=== PATIENT | female | born 1930 | race Caucasian/White ===

== ENCOUNTER 2018-01-19 17:40 | Inpatient (IN) | payer MEDICARE ==
--- NOTE | 2018-01-19 19:28 | ER ---
Nurse's Notes [facility] Name: Dina Mills Age: 87 yrs Sex: Female : 1930 Arrival Date: 01/19/2018 Time: 17:42 Bed 5 Private MD: Diagnosis: Cellulitis of left upper limb-with lymphangitis Presentation: 01/19 17:49 Presenting complaint: Patient states: Worsening LEFT hand swelling and pain 9/10 after hb pulling weeds 5 days ago. Pt noticed two small blisters on left ring finger before the swelling started. Transition of care: patient was not received from another setting of care. Onset of symptoms is unknown. Care prior to arrival: Medication(s) given: Tylenol, at 1500 today. 17:49 Method Of Arrival: Ambulatory hb 17:49 Acuity: AUDI 3 hb Historical: - Allergies: 17:51 Iodinated Contrast- Oral and IV Dye; hb 17:51 Sulfa (Sulfonamide Antibiotics); hb - PSHx: 17:51 Hysterectomy; R hip; hb - Immunization history:: Adult Immunizations up to date. - Social history:: Smoking status: Patient/guardian denies using tobacco. Screenin:48 Abuse screen: Denies threats or abuse. Denies injuries from another. Nutritional ph screening: No deficits noted. Tuberculosis screening: No symptoms or risk factors identified. Fall Risk None identified. Assessment: 18:15 General: Appears in no apparent distress. comfortable, slender, well groomed, Behavior ph is calm, cooperative, appropriate for age, Denies fever. Pain: Complains of pain in left hand Pain radiates to left arm. Neuro: Level of Consciousness is awake, alert, obeys commands, Oriented to person, place, time, situation. Cardiovascular: Capillary refill < 3 seconds in bilateral fingers Patient's skin is warm and dry. Pulses are palpable in right radial artery and left radial artery. Respiratory: Airway is patent Respiratory effort is even, unlabored. GI: Patient currently denies epigastric pain, nausea, vomiting. Derm: Skin is fragile, is thin, Skin is pink, warm \T\ dry. redness and swelling noted to palm and dorsal aspect of L hand w/ streaking to antecubital area. Musculoskeletal: Circulation, motion, and sensation intact. Range of motion: intact in all extremities. 19:15 General: I agree with the previous assessment. . bs1 20:15 Reassessment: Patient appears in no apparent distress at this time. No changes from bs1 previously documented assessment. Patient and/or family updated on plan of care and expected duration. Pain level reassessed. Patient is alert, oriented x 3, equal unlabored respirations, skin warm/dry/pink. 21:02 Reassessment: Patient appears in no apparent distress at this time. No changes from bs1 previously documented assessment. Patient is alert, oriented x 3, equal unlabored respirations, skin warm/dry/pink. Pending bed assignment. 22:10 Reassessment: Patient is alert, oriented x 3, equal unlabored respirations, skin bs1 warm/dry/pink. Patient admitted to 4th floor. Vital Signs: 17:51 BP 180 / 92; Pulse 83; Resp 16; Temp 98.6; Pulse Ox 98% on R/A; Weight 58.97 kg; Height hb 5 ft. 7 in. (170.18 cm); Pain 9/10; 18:00 BP 174 / 91; Pulse 79; Resp 17; Pulse Ox 99% on R/A; mt 19:21 BP 166 / 82; Pulse 75; Resp 16; Pulse Ox 99% on R/A; mt 20:30 BP 156 / 66; Pulse 73; Pulse Ox 99% on R/A; bs1 21:11 BP 154 / 71; Pulse 74; Resp 16; Pulse Ox 98% on R/A; mt 22:14 BP 174 / 63; Pulse 78; Resp 16 S; Pulse Ox 100% on R/A; Pain 0/10; bs1 17:51 Body Mass Index 20.36 (58.97 kg, 170.18 cm) hb ED Course: 17:42 Patient arrived in ED. as 17:50 Triage completed. hb 17:51 Arm band placed on right wrist. hb 17:53 [facility] jr[facility] 17:53 Madhu Gann MD is Attending Physician. jr8 19:26 Manas Atkins MD is Hospitalizing Provider. jr8 19:30 IV discontinued, bleeding controlled, No redness/swelling at site. Pressure dressing bs1 applied. 19:44 Inserted saline lock: 22 gauge in right antecubital area, using aseptic technique. bs1 19:48 Patient has correct armband on for positive identification. Placed in gown. Bed in low ph position. Call light in reach. Side rails up X 1. Pulse ox on. NIBP on. Warm blanket given. Pillow given. 19:51 Karoline Dickerson, LUCIANA is Primary Nurse. bs1 19:52 Basic Metabolic Panel Sent. bs1 19:52 CBC with Diff Sent. bs1 19:53 Blood Culture Adult (2) Sent. bs1 22:08 No provider procedures requiring assistance completed. Patient admitted, IV remains in bs1 place. intact. Administered Medications: 19:47 Drug: vancoMYCIN 1 grams Route: IVPB; Infused Over: 2 hrs; Site: right antecubital; bs1 21:02 Follow up: Response: No adverse reaction bs1 22:10 Follow up: IV Status: Completed infusion bs1 20:04 Drug: LevaQUIN 500 mg Volume: 100 ml; Route: IVPB; Infused Over: 60 mins; Site: right bs1 antecubital; 21:03 Follow up: Response: No adverse reaction bs1 21:04 Follow up: IV Status: Completed infusion bs1 Outcome: 19:27 Decision to Hospitalize by Provider. jr8 22:09 Admitted to Tele accompanied by tech, via stretcher, room 422, with chart, Report bs1 called to LUCIANA Gunderson 22:09 Condition: stable 22:09 Instructed on the need for admit. 22:19 Patient left the ED. bs1 Signatures: Sandy Marie Josh, PA PA jr8 Torri Ambrose RN RN Fiordaliza Rich RN RN Paulette Hsu sc Karoline Dickerson RN RN bs1 Corrections: (The following items were deleted from the chart) 17:52 17:49 Presenting complaint: Patient states: Worsening LEFT hand swelling and pain 9/10 hb x 5 days. hb 22:15 22:09 Admitted to Tele accompanied by tech, via wheelchair, room 422, with chart, bs1 Report called to LUCIANA Gunderson bs1
--- NOTE | 2018-01-19 19:28 | EDPHYS ---
Physician Documentation [facility] Name: Dina Mills Age: 87 yrs Sex: Female : 1930 Arrival Date: 01/19/2018 Time: 17:42 Bed 5 Private MD: ED Physician Madhu Gann HPI: 01/19 19:00 This 87 yrs old Female presents to ER via Ambulatory with complaints of Hand jr8 Swelling. 19:00 The patient or guardian reports pain, swelling. The complaints affect the left hand jr8 diffusely. Onset: The symptoms/episode began/occurred acutely, yesterday. Modifying factors: The symptoms are alleviated by nothing, the symptoms are aggravated by nothing. Associated signs and symptoms: The patient has no apparent associated signs or symptoms. Severity of symptoms: At their worst the symptoms were moderate, in the emergency department the symptoms are unchanged. The patient has not experienced similar symptoms in the past. The patient has not recently seen a physician. Patient stated that she was gardening the other day. Saw a blister like lesion on left hand. Now has redness to hand with pain and decreased ROM. Historical: - Allergies: 17:51 Iodinated Contrast- Oral and IV Dye; hb 17:51 Sulfa (Sulfonamide Antibiotics); hb - PSHx: 17:51 Hysterectomy; R hip; hb - Immunization history:: Adult Immunizations up to date. - Social history:: Smoking status: Patient/guardian denies using tobacco. ROS: 19:00 Eyes: Negative for injury, pain, redness, and discharge, ENT: Negative for injury, jr8 pain, and discharge, Neck: Negative for injury, pain, and swelling, Cardiovascular: Negative for chest pain, palpitations, and edema, Respiratory: Negative for shortness of breath, cough, wheezing, and pleuritic chest pain, Abdomen/GI: Negative for abdominal pain, nausea, vomiting, diarrhea, and constipation, Back: Negative for injury and pain, Skin: Negative for injury, rash, and discoloration, Neuro: Negative for headache, weakness, numbness, tingling, and seizure. 19:00 MS/extremity: Positive for decreased range of motion, erythema, pain, swelling, warmth. Exam: 19:00 Cardiovascular: Regular rate and rhythm with a normal S1 and S2. No gallops, murmurs, jr8 or rubs. Normal PMI, no JVD. No pulse deficits. Respiratory: Lungs have equal breath sounds bilaterally, clear to auscultation and percussion. No rales, rhonchi or wheezes noted. No increased work of breathing, no retractions or nasal flaring. Abdomen/GI: Soft, non-tender, with normal bowel sounds. No distension or tympany. No guarding or rebound. No evidence of tenderness throughout. Back: No spinal tenderness. No costovertebral tenderness. Full range of motion. Skin: Warm, dry with normal turgor. Normal color with no rashes, no lesions, and no evidence of cellulitis. Neuro: Awake and alert, GCS 15, oriented to person, place, time, and situation. Cranial nerves II-XII grossly intact. Motor strength 5/5 in all extremities. Sensory grossly intact. Cerebellar exam normal. Normal gait. 19:00 Musculoskeletal/extremity: Extremities: grossly normal except: noted in the left arm: Patient has moderate amount of erythema to dorsum of hand. Mild erythema to palmar aspect over the MCP region. Patient able to flex and extend fingers but with pain. Streaking noted up to upper arm , Circulation is intact in all extremities. Sensation intact. Vital Signs: 17:51 BP 180 / 92; Pulse 83; Resp 16; Temp 98.6; Pulse Ox 98% on R/A; Weight 58.97 kg; Height hb 5 ft. 7 in. (170.18 cm); Pain 9/10; 18:00 BP 174 / 91; Pulse 79; Resp 17; Pulse Ox 99% on R/A; mt 19:21 BP 166 / 82; Pulse 75; Resp 16; Pulse Ox 99% on R/A; mt 20:30 BP 156 / 66; Pulse 73; Pulse Ox 99% on R/A; bs1 21:11 BP 154 / 71; Pulse 74; Resp 16; Pulse Ox 98% on R/A; mt 22:14 BP 174 / 63; Pulse 78; Resp 16 S; Pulse Ox 100% on R/A; Pain 0/10; bs1 17:51 Body Mass Index 20.36 (58.97 kg, 170.18 cm) hb MDM: 17:53 Patient medically screened. jr8 19:26 Data reviewed: vital signs, nurses notes, lab test result(s), and as a result, I will jr8 admit patient. Data interpreted: Pulse oximetry: on room air is 99 %. Interpretation: normal. Counseling: I had a detailed discussion with the patient and/or guardian regarding: the historical points, exam findings, and any diagnostic results supporting the discharge/admit diagnosis, lab results, the need for further work-up and treatment in the hospital. 01/19 18:13 Order name: CBC with Diff [facility] 01/19 18:13 Order name: Basic Metabolic Panel [facility] 01/19 18:13 Order name: Blood Culture Adult (2) [facility] 01/19 20:32 Order name: CBC with Automated Diff; Complete Time: 20:33 EDCT 01/19 20:41 Order name: Basic Metabolic Panel [facility] 01/19 18:13 Order name: IV; Complete Time: 19:04 jr8 Administered Medications: 19:47 Drug: vancoMYCIN 1 grams Route: IVPB; Infused Over: 2 hrs; Site: right antecubital; bs1 21:02 Follow up: Response: No adverse reaction bs1 22:10 Follow up: IV Status: Completed infusion bs1 20:04 Drug: LevaQUIN 500 mg Volume: 100 ml; Route: IVPB; Infused Over: 60 mins; Site: right bs1 antecubital; 21:03 Follow up: Response: No adverse reaction bs1 21:04 Follow up: IV Status: Completed infusion bs1 Disposition: 01/19/18 19:27 Hospitalization ordered by Manas Atkins for Inpatient Admission. Preliminary diagnosis is Cellulitis of left upper limb - with lymphangitis . - Bed requested for Telemetry/MedSurg (Inpatient). - Status is Inpatient Admission. bs1 - Condition is Stable. - Problem is new. - Symptoms have improved. UTI on Admission? No Addendum: 01/21/2018 07:51 Co-signature as Attending Physician, Madhu Gann MD I agree with the assessment and c acosta plan of care. Signatures: Dispatcher [employer] Ricarda Patterson, RN Madhu Goldberg MD MD cha Roszak, Josh, PA PA jr8 Fiordaliza Rich RN RN hb Salazar, Brittany, RN RN bs1
[2018-01-19] MEDS ORDERED: VANCOMYCIN/NS 1 gm 1 GM/250 ML BAG ONE (20:04)
[2018-01-19] MEDS ORDERED: Levofloxacin500mg IV 500 MG/100 ML BAG IV ONE (20:04)
[2018-01-19 20:30] LABS: Absolute Lymphocytes (CBC) 0.7 K/uL (0.7-4.9); Absolute Monocytes 0.4 K/uL (0.1-1.3); Absolute Neutrophil 5.5 K/uL (1.8-8.0); Basophils % 0.6 % (0-1.3); Eosinophils % 0.5 % (0-4.4); Hematocrit 42.8 % (36.0-45.0); Lymphocytes % 10.1 % (15.3-44.8); MCH 34.6 pg (27.0-35.0); MCV 100.5 fL (80-100); MPV 7.7 fL (7.6-11.3); Monocytes % 6.4 % (3.3-12.3); RBC Red Blood Cell Count 4.26 M/uL (3.86-4.86)
[2018-01-19 20:55] LABS: Potassium 3.9 mEq/L (3.6-5.0)
--- NOTE | 2018-01-19 21:28 | P.HP ---
Certification for Inpatient Patient admitted to: Inpatient With expected LOS: >2 Midnights Practitioner: I am a practitioner with admitting privileges, knowledge of patient current condition, hospital course, and medical plan of care. Services: Services provided to patient in accordance with Admission requirements found in Title 42 Section 412.3 of the Code of Federal Regulations Patient History Date of Service: 01/19/18 Reason for admission: cellulits History of Present Illness: Ms Mills is an 87 years old woman with history of HTN, PE/DVT on eliquis, who was doing gardening about 5 days ago, and subsequently she noticed a little blister in her ring finger. Over the time, wound was getting big and become painful. She denied any fever or chills. Today she noticed that the redness area in the ring finger, was extended to her hand. Her left hand is painful to palpation, warmth and swollen. Lab work shows normal WBC count, she is afebrile in ED. Allergies iodine Allergy (Severe, Verified 11/07/12 20:37) Itching/Hives/Rash Sulfa (Sulfonamide Antibiotics) [Sulfa(Sulfonamide Antibiotics)] Allergy (Severe , Verified 11/07/12 20:37) Itching Iodinated Contrast- Oral and IV Dye [Iodinated Contrast Media - IV Dye] Allergy (Verified 07/27/15 23:13) Unknown Home Medications: Metoclopramide [Reglan] 5 mg PO TIDWM 07/28/15 Tramadol HCl [Ultram] 50 mg PO Q4H PRN 07/28/15 Clotrim/Betameth Cream [Lotrisone Cream*] 1 appl TOP Q12H tube 08/18/15 Metoprolol Tartrate [Lopressor*] 25 mg PO BID 6AM 6PM #60 tab 08/18/15 Pantoprazole Sodium 40 mg PO DAILY #30 tablet. 08/18/15 Rivaroxaban [Xarelto*] 15 mg PO BID #24 tablet 08/18/15 Sertraline [Zoloft*] 25 mg PO DAILY #15 tab 08/18/15 Zinc Oxide [Zinc Oxide 20%*] 1 appl TOP Q12H tube 08/18/15 - Past Medical/Surgical History Diabetic: No -: hypertension -: high cholesterol -: PE -: DVT -: hysterectomy 1973 -: hematoma removed from right hand 2010 -: Repair pelvic prolapse last year -: Fractured hip, SX 07/14/15 - Family History Family History: Reviewed- Non-Contributory - Social History Smoking Status: Never smoker Alcohol use: No CD- Drugs: No Caffeine use: Yes Place of Residence: Home Review of Systems 10-point ROS is otherwise unremarkable Physical Examination - Physical Exam General: Alert, In no apparent distress HEENT: Atraumatic, PERRLA, Mucous membr. moist/pink, EOMI, Sclerae nonicteric Neck: Supple, 2+ carotid pulse no bruit, No LAD, Without JVD or thyroid abnormality Respiratory: Clear to auscultation bilaterally, Normal air movement Cardiovascular: Regular rate/rhythm, Normal S1 S2 Capillary refill: <2 Seconds Gastrointestinal: Normal bowel sounds, No tenderness Musculoskeletal: No tenderness Integumentary: Tenderness/swelling (left hand), Erythema Neurological: Normal speech, Normal strength at 5/5 x4 extr, Normal tone, Normal affect Lymphatics: No axilla or inguinal lymphadenopathy Assessment and Plan - Problems (Diagnosis) (1) History of pulmonary embolism Current Visit: Yes Status: Acute (2) Cellulitis Current Visit: Yes Status: Acute Qualifiers: Site of cellulitis: extremity Site of cellulitis of extremity: upper extremity Laterality: left Qualified Code(s): L03.114 - Cellulitis of left upper limb (3) Hypertension Onset Date: 08/02/15 Current Visit: No Status: Acute Qualifiers: Hypertension type: essential hypertension Qualified Code(s): I10 - Essential (primary) hypertension - Plan The patient will be admitted to the hospital due to left hand cellulitis. She is not septic, but has extended erythematose area which will be benefited by IV antibiotic treatment. Will start IV Levaquin and Vancomycin. Blood cultures in process. Will resume her home medication once verified. - Advance Directives Does patient have a Living Will: No Does patient have a Durable POA for Healthcare: No - Code Status/Comfort Care Code Status Assessed: Yes Code Status: Full Code
[2018-01-19 22:37] VITALS: BMI 24.5
[2018-01-19] MEDS ORDERED: ONDANSETRON 4 MG/2 ML VIAL IV PRN (22:55)
[2018-01-19] MEDS: ACETAMINOPHEN 500 MG TAB PO PRN (23:20)
[2018-01-19] MEDS: NA CHLORIDE 0.9% 1,000 ML IV SCH (23:21)
[2018-01-20 05:19] LABS: Absolute Lymphocytes (CBC) 0.7 K/uL (0.7-4.9); Absolute Monocytes 0.4 K/uL (0.1-1.3); Absolute Neutrophil 5.3 K/uL (1.8-8.0); Basophils % 0.4 % (0-1.3); Eosinophils % 0.3 % (0-4.4); Hematocrit 40.6 % (36.0-45.0); Lymphocytes % 10.8 % (15.3-44.8); MCH 34.6 pg (27.0-35.0); MCV 101.3 fL (80-100); MPV 7.6 fL (7.6-11.3); Monocytes % 6.6 % (3.3-12.3); RBC Red Blood Cell Count 4.01 M/uL (3.86-4.86)
[2018-01-20] MEDS: METOPROLOL TAR 25 MG TAB PO SCH ×2 (05:24→17:22)
[2018-01-20] MEDS: ACETAMINOPHEN 500 MG TAB PO PRN ×3 (08:33→21:06)
[2018-01-20] MEDS: PANTOPRAZOLE 40MG TABLET PO SCH (08:34)
[2018-01-20] MEDS: SERTRALINE HCL 50 MG TAB PO SCH (08:34)
[2018-01-20] MEDS: NA CHLORIDE 0.9% 1,000 ML IV SCH (08:35)
[2018-01-20] MEDS ORDERED: RIVAROXABAN 15 MG TABLET PO SCH (09:00)
[2018-01-20 12:27] LABS: Magnesium 1.9 mg/dL (1.8-2.5)
[2018-01-20 13:08] LABS: Urine Appearance CLEAR; Urine Bilirubin NEGATIVE (NEG); Urine Blood NEGATIVE (NEG); Urine Color YELLOW; Urine Glucose NEGATIVE (NEG); Urine Protein NEGATIVE (NEG); Urine Specific Gravity <=1.005 (1.005-1.030); Urine Urobilinogen 0.2 mg/dL (0.2-1.0); Urine pH 6.5 (5.0-7.0)
[2018-01-20 13:29] LABS: Urine Microscopic Reflex NO UMIC
--- NOTE | 2018-01-20 14:09 | P.PN ---
Subjective Date of Service: 01/20/18 Chief Complaint: cellulits Pt seen at bedside With RN. Case discussed with patient and family member at bedside. Patient currently states that she is doing much better than before. States that her swelling and erythema has gone down in her left arm. Review of Systems General: As per HPI Physical Examination - Vital Signs Temperature: 97.6 F Blood Pressure: 124/55 Pulse: 59 Respirations: 18 Pulse Ox (%): 95 - Physical Exam General: Alert, In no apparent distress, Oriented x3 HEENT: Atraumatic, PERRLA, EOMI Neck: Supple, JVD not distended Respiratory: Clear to auscultation bilaterally, Normal air movement Cardiovascular: Regular rate/rhythm, Normal S1 S2 Gastrointestinal: Normal bowel sounds, No tenderness Musculoskeletal: Erythema, Tenderness, Warmth (Left Arm erythema and tenderness with Swelling. ) Integumentary: No rashes Neurological: Normal speech, Normal tone, Normal affect Lymphatics: No axilla or inguinal lymphadenopathy - Studies Medications List Reviewed: Yes Assessment & Plan - Problems (Diagnosis) (1) Cellulitis Current Visit: Yes Status: Acute Plan: Left hand cellulitis. Improving slightly -IV vanc and levaquin -Blood Culture pending -Repeat lab in AM Qualifiers: Site of cellulitis: extremity Site of cellulitis of extremity: upper extremity Laterality: left Qualified Code(s): L03.114 - Cellulitis of left upper limb (2) History of pulmonary embolism Current Visit: Yes Status: Chronic Plan: On xarelto (3) Hyperlipidemia Onset Date: 08/02/15 Current Visit: No Status: Acute Qualifiers: Hyperlipidemia type: mixed hyperlipidemia Qualified Code(s): E78.2 - Mixed hyperlipidemia (4) Hypertension Onset Date: 08/02/15 Current Visit: No Status: Chronic Qualifiers: Hypertension type: essential hypertension Qualified Code(s): I10 - Essential (primary) hypertension Discharge Plan: Home Plan to discharge in: 48 Hours - Code Status/Comfort Care Code Status Assessed: Yes Critical Care: No
[2018-01-20] MEDS: RIVAROXABAN 15 MG TABLET PO SCH (17:23)
[2018-01-20] MEDS ORDERED: VANCOMYCIN 1.25 GM in NA CHLORIDE 0.9% 500 ML IVPB SCH (20:00)
[2018-01-20] MEDS: Levofloxacin500mg IV 500 MG/100 ML BAG IV SCH (21:03)
[2018-01-21] MEDS: METOPROLOL TAR 25 MG TAB PO SCH ×2 (07:12→17:38)
[2018-01-21] MEDS: RIVAROXABAN 15 MG TABLET PO SCH ×2 (08:03→09:23)
[2018-01-21] MEDS: TRAMADOL HCL 50 MG TAB PO PRN ×2 (08:03→20:37)
[2018-01-21] MEDS: PANTOPRAZOLE 40MG TABLET PO SCH (08:04)
[2018-01-21] MEDS: SERTRALINE HCL 50 MG TAB PO SCH (08:04)
[2018-01-21] MEDS: HYDROXYUREA 500 MG CAP PO SCH (08:04)
[2018-01-21] MEDS ORDERED: HYDROXYUREA 500 MG CAP PO SCH (09:00)
[2018-01-21] MEDS ORDERED: VANCOMYCIN 1.25 GM in NA CHLORIDE 0.9% 250 ML IVPB SCH (20:00)
--- NOTE | 2018-01-21 20:31 | PN ---
Date of Progress Note: 01/21/2018 The patient is seen and examined, chart reviewed and case discussed with RN. Subjective: The patient states her swelling has improved as has the redness in her arm, however, still has some swelling of her knuckles and unable to make a fist. Review of Systems: Negative, except as above. Medications: Reviewed. Physical Examination: Vital Signs: Temperature 98.7, heart rate 55, blood pressure 140/72, respirations 15, and O2 of 98% on room air. General: Awake, alert, and oriented x3, not in any acute distress. Elderly female, somewhat ill-appearing. CV: S1 and S2. No murmurs. Peripheral pulses present. Respiratory: Clear to auscultation bilaterally. No wheezing. Gastrointestinal: Abdomen is soft, nontender, and nondistended. Positive bowel sounds. No guarding or rigidity. Extremities: No clubbing or cyanosis. Left upper extremity edema is present. Integumentary: Left upper extremity erythema, mild tenderness to palpation, swelling of the hand. Neurologic: Nonfocal. Laboratory Data: Pending. Blood cultures, no growth to date. Assessment And Plan: An 87-year-old female with, 1. Cellulitis of left upper extremity. We will continue with IV antibiotics. Follow up on cultures. We will contact Dr. Nelson to see if he is available for consultation. He is not on-call; if unavailable, we will direct the patient to follow up with him as an outpatient. 2. Essential hypertension, stable on home medications. 3. History of pulmonary embolism. 4. Mixed hyperlipidemia. 5. History of deep venous thrombosis. Continue anticoagulation. Plan: Repeat labs in a.m., likely discharge if cultures negative. /JAX Voice ID: [id number] Report ID: [id number]
[2018-01-21] MEDS: Levofloxacin500mg IV 500 MG/100 ML BAG IV SCH (20:36)
[2018-01-22 04:54] LABS: Absolute Lymphocytes (CBC) 1.3 K/uL (0.7-4.9); Absolute Monocytes 0.5 K/uL (0.1-1.3); Eosinophils % 2.3 % (0-4.4); Hematocrit 39.9 % (36.0-45.0); Lymphocytes % 26.2 % (15.3-44.8); MCH 34.3 pg (27.0-35.0); MCV 101.5 fL (80-100); MPV 7.9 fL (7.6-11.3); Monocytes % 9.7 % (3.3-12.3); RBC Red Blood Cell Count 3.94 M/uL (3.86-4.86)
[2018-01-22 05:04] LABS: Albumin 3.4 g/dL (3.2-5.5); Bilirubin Total 0.6 mg/dL (0.3-1.2); Protein, Total 5.9 g/dL (6.0-8.3)
[2018-01-22] MEDS: METOPROLOL TAR 25 MG TAB PO SCH (05:37)
[2018-01-22 08:34] VITALS: BP 124/62; TEMP 97.3
[2018-01-22] MEDS: HYDROXYUREA 500 MG CAP PO SCH (08:45)
[2018-01-22] MEDS: SERTRALINE HCL 50 MG TAB PO SCH (08:45)
[2018-01-22] MEDS: PANTOPRAZOLE 40MG TABLET PO SCH (08:45)
[2018-01-22 10:06] VITALS: O2SAT 94
[2018-01-22] MEDS ORDERED: RIVAROXABAN 15 MG TABLET PO SCH (17:00)
--- NOTE | 2018-01-23 05:34 | DS ---
Date of Discharge: 01/22/2018 Admitting Diagnoses: 1.Cellulitis of the left upper extremity. 2.History of pulmonary embolism, on anticoagulation. 3.Essential hypertension. 4.History of deep vein thrombosis. 5.Mixed hyperlipidemia. Discharge Diagnoses: 1.Cellulitis of the left upper extremity. Blood cultures negative. 2.Essential hypertension, stable. 3.History of pulmonary embolism and deep venous thrombosis, on anticoagulation. 4.Mixed hyperlipidemia. Hospital Course: The patient is an 87-year-old female, who came in with cellulitis of her left upper extremity after wound sustained during gardening. The patient was started on IV antibiotics. Blood cultures were obtained which remained negative to date. Her white count remained normal. Her elect rolytes were stable. The patient's erythema and swelling improved. She was able to have increased r prosper of motion of her left hand. No neurological or vascular compromise. The patient was unable to be seen by Dr. Nelson, who was not on-call. Therefore, the patient will be referred to his office as an outpatient. The patient remained afebrile. Her condition improved. The patient was then sta ble for discharge. The patient was discharged to home in a stable condition. Activity: As tolerated. Medications: As per medication reconciliation list. Followup: Follow up with primary care physician in 2 to [address] Lai. Follow up with Dr. Corby forte in 1 week. Return to ER for worsening condition. Diet: Heart healthy. Total time spent discharging patient was 32 minutes. Physical Examination: General: Awake, alert, oriented, in no acute distress. CV: S1, S2. No murmurs. Peripheral pulses present. Respiratory: Clear to auscultation bilaterally. No wheezing. Abdomen: Soft, nontender, nondistended. Positive bowel sounds. Extremities: No clubbing, cyanosis. Integumentary: Left upper extremity erythema improved significantly. Very minimal swelling. SA/MODL Voice ID: [id number] Report ID: [id number]
== END 2018-01-22 10:36 | disposition home or self-care (01) | DRG 603 ==
LOC: ER 17:40 → ERHOLD 19:38 → 4TH 21:43
PROVIDERS: ADMIT Internal Medicine; ATTEND Internal Medicine
DX: L03.114 Cellulitis of left upper limb (principal); I10 Essential (primary) hypertension; E78.2 Mixed hyperlipidemia; Z86.718 Personal history of other venous thrombosis and embolism; Z86.711 Personal history of pulmonary embolism; Z79.01 Long term (current) use of anticoagulants; Z88.2 Allergy status to sulfonamides
CPT/HCPCS: 36415; 80048; 80053; 81003; 83735; 85025; 87040; 96365; 99285; J2405; J3370; J7030